=== PATIENT | female | born 1945 | race Caucasian/White ===

== ENCOUNTER 2021-01-02 09:42 | Day surgery (SDC) | payer MEDICARE ==
[~2021-01-02] VITALS: Ht 162.6 cm; Wt 63.6 kg
--- NOTE | 2021-01-02 10:53 | NUR ---
Initial visit; Patient thanked Shuttle Car Operator for offering encouragement and prayer prior to her 'Procedure,' and wished her well and God's blessings.
[2021-01-02] MEDS ORDERED: COZAAR 50MG50 MG/TAB PO (11:27)
[2021-01-02] MEDS ORDERED: PEPCID 20MG TAB20 MG PO (11:28)
[2021-01-02] MEDS ORDERED: CELEXA40 MG PO (11:28)
[2021-01-02] MEDS ORDERED: PLAQUENIL 200M200 MG PO (11:28)
[2021-01-02] MEDS ORDERED: PLAVIX 75MG TAB75 MG PO (11:29)
[2021-01-02 11:32] VITALS: BP 144/73; PULSE 67; TEMP 98.4
[2021-01-02 12:20] VITALS: BP 162/80; PULSE 64
--- NOTE | 2021-01-02 12:20 | NUR ---
Pt to GI bay 3 via cart from ENDO. Pt awake and alert. Denies pain or nausea. Pt ambulates to recliner with standby assistance. Warm blanket given. Pt asking to go home "right away". Encouraged pt to rest for a short time to make sure she is stable and this nurse will prepare discharge instructions soy. Water given per pt request and pt takes sips without diffiuclties. Call light within reach.
[2021-01-02 12:35] VITALS: BP 148/88; PULSE 65
--- NOTE | 2021-01-02 12:35 | NUR ---
Discharge instructions reviewed. Pt voices understanding. IV site disocntinued with all parts intact. Pt up to dress with nurse assist.
--- NOTE | 2021-01-02 12:50 | NUR ---
Pt escorted to private car via wheel chair. Pt accompanied home by her granddaughter.
== END 2021-01-02 12:50 | disposition home or self-care (01) ==
LOC: SDCO 09:42
DX: K22.2 Esophageal obstruction (principal); R13.12 Dysphagia, oropharyngeal phase; I10 Essential (primary) hypertension; K21.9 Gastro-esophageal reflux disease without esophagitis; Z79.02 Long term (current) use of antithrombotics/antiplatelets; Z79.899 Other long term (current) drug therapy
CPT/HCPCS: C1726; J2704; J7030